=== PATIENT | male | born 1935 | race Two or more races ===

== ENCOUNTER 2019-05-12 13:50 | Day surgery (SDC) | payer OTHER ==
[~2019-05-12] VITALS: Ht 175.3 cm; Wt 99.8 kg
[2019-05-12] VITALS (8 sets, daily range): BP systolic 113–153; BP diastolic 42–79
[2019-05-12] MEDS ORDERED: normal saline 1,000 ML IV SCH (14:15)
[2019-05-12] MEDS ORDERED: diphenhydrAMINE 25mg capsule PO PRN (14:15)
[2019-05-12] MEDS ORDERED: LORazepam 0.5 MG tablet PO PRN (14:15)
[2019-05-12] MEDS ORDERED: OMEP20TA23 PO (15:49)
[2019-05-12] MEDS ORDERED: HYDR25TA4 PO (15:49)
[2019-05-12] MEDS ORDERED: AMLO10TA4 PO (15:49)
[2019-05-12] MEDS ORDERED: METF500T PO (15:49)
[2019-05-12] MEDS ORDERED: ASPI-1265 PO (15:49)
[2019-05-12] MEDS ORDERED: METO-467 PO (15:49)
[2019-05-12] MEDS ORDERED: CYAN500T63 PO (15:49)
[2019-05-12] MEDS ORDERED: GLUC-150 PO (15:49)
[2019-05-12] MEDS ORDERED: ALOG25TA2 PO (15:49)
[2019-05-12] MEDS ORDERED: MIR1T PO (15:49)
[2019-05-12] MEDS ORDERED: NITR0.4T51 SL (15:51)
[2019-05-12] MEDS ORDERED: MULT-1141 PO (15:53)
[2019-05-12] MEDS ORDERED: LOVA20TA2 PO (15:53)
[2019-05-12] MEDS ORDERED: LOSA25TA96 PO (15:54)
[2019-05-12] MEDS ORDERED: midazolam 2 mg/2 ml injection ONE (17:08)
[2019-05-12] MEDS ORDERED: LIDOcaine 1% (10mg/ml)w/preservative injection 20ml MDV ONE (17:08)
[2019-05-12] MEDS ORDERED: fentaNYL/PF 50MCG/1 ML 2ML syringe ONE (17:08)
[2019-05-12] MEDS ORDERED: iohexol 350MG/ML 100ml bottle IV ONE (17:08)
[2019-05-12] MEDS ORDERED: proCHLORperazine 10 MG/2 ml inj IV PRN (18:10)
[2019-05-12] MEDS ORDERED: ondansetron/PF 4mg/2ml inj IV PRN (18:10)
[2019-05-12] MEDS ORDERED: HYDROcodone/acetaminophen 10/325mg tab PO PRN (18:10)
[2019-05-12] MEDS ORDERED: HYDROcodone/acetaminophen 5mg/325mg tablet PO PRN (18:10)
[2019-05-12] MEDS ORDERED: OXAZEpam 15mg capsule PO PRN (18:10)
== END 2019-05-12 20:15 | disposition home or self-care (01) ==
LOC: SSTAY O 13:50
PROVIDERS: ATTEND Internal Medicine Interventional Cardiology
DX: R94.39 Abnormal result of other cardiovascular function study (principal); R07.9 Chest pain, unspecified; I25.10 Atherosclerotic heart disease of native coronary artery without angina pectoris; G47.33 Obstructive sleep apnea (adult) (pediatric); E11.9 Type 2 diabetes mellitus without complications; I10 Essential (primary) hypertension; E78.5 Hyperlipidemia, unspecified; Z79.899 Other long term (current) drug therapy; Z79.82 Long term (current) use of aspirin; Z79.84 Long term (current) use of oral hypoglycemic drugs
CPT/HCPCS: 82948; 93005; 93458; 99152; C1769; J1644; J2001; J2250; J3010; J7030; Q0163; Q9967; A4620; A6258

== ENCOUNTER 2025-02-24 10:34 | Day surgery (SDC) | payer OTHER ==
[2025-02-20 09:08] LABS: MEAN PLATELET VOLUME 8.7 FL (7.4-10.4); RED CELL DISTRIBUTION WIDTH 13.4 % (11.5-14.5)
[2025-02-20 09:17] LABS: APTT 28 SECONDS (22-32); INR 1.1 INR
[2025-02-20 09:21] LABS: CHOL/HDL RATIO 1.9 (0.00-4.99); CREATININE 0.64 MG/DL (0.60-1.10); LDL CHOLESTEROL 50 MG/DL (50-100); TOTAL CARBON DIOXIDE 26.0 MMOL/L (24-32); eGFR > 90 ML/MIN
[2025-02-24] VITALS (8 sets, daily range): BP systolic 115–135; BP diastolic 63–72; PULSE 69–80; RESP 14–16; TEMP 97.8; O2SAT 95–100
[~2025-02-24] VITALS: Ht 175.3 cm; Wt 85.1 kg
[~2025-02-24 10:34] MED LIST: AMLO-912 PO; ASPI-1265 PO; CYAN500T71 PO; EMPA25TA PO; FINA5TAB11 PO; GLUC-150 PO; HYDR25TA4 PO; LOSA-415 PO; LOVA20TA2 PO; METF500T PO; MIR1T PO; NITR0.4T51 SL; OMEP20TA23 PO; ROSU5TAB51 PO
--- NOTE | 2025-02-24 11:11 | ELECTROCARDIOGRAPH REPORT ---
[facility] Test Date: 2025-02-24 Test Time: 11:10:03 Pat Name: TERRELL PENA Department: [facility] Patient ID: [facility]-[id number] Room: Gender: M Patient Care Technician: : 1935 Requested By: EUGENIA YANG Order Number: [id number] Reading MD: Dr. Armando Cardoza Measurements Intervals [place] Rate: 78 P: 25 NH: 286 QRS: -44 QRSD: 122 T: 88 QT: 417 QTc: 476 Interpretive Statements Sinus rhythm Prolonged [place] interval Probable left atrial enlargement Left bundle branch block Electronically Signed On 02-25-2025 8:33:[address] Armando Cardoza Please click the below link to view image of tracing.
[2025-02-24] MEDS ORDERED: TAMS-55 PO (11:46)
[2025-02-24] MEDS ORDERED: CHOL200080 PO (11:46)
[2025-02-24] MEDS ORDERED: normal saline 1000ml 1,000 ML IV SCH (12:10)
[2025-02-24] MEDS ORDERED: verapamil 2.5 mg/ml inj IV ONE (13:41)
[2025-02-24] MEDS ORDERED: LIDOcaine 1% (10mg/ml) 2ml vial ONE (13:41)
[2025-02-24] MEDS ORDERED: midazolam 1 mg/ML 2ml injection ONE (13:42)
[2025-02-24] MEDS ORDERED: fentaNYL/PF 50MCG/1 ML 2ML syringe ONE (13:42)
[2025-02-24] MEDS ORDERED: heparin 1,000unit/ml 10ml vial 10 ML ONE (13:42)
[2025-02-24] MEDS ORDERED: nitroGLYCERIN 500mcg/5mL D5W 5 ML IV ONE (13:44)
[2025-02-24 14:32] LABS: ISTAT HGB ART 13.6 g/dl (14.0-17.9); ISTAT Hct ART 40 %PCV (42-52); ISTAT O2 SATURATION ARTERIAL 90 % (95-98); ISTAT SOURCE ART
[2025-02-24] MEDS ORDERED: HYDROcodone/acetaminophen 5mg/325mg tablet PO PRN (15:00)
[2025-02-24] MEDS ORDERED: HYDROcodone/acetaminophen 10/325mg tab PO PRN (15:00)
--- NOTE | 2025-02-24 16:02 | CARDIAC CATH REPORT ---
Cardiac Cath Report Providers to CC CC: DORIS YANG MD Procedure Comments: 1. Right Heart Catheterization 2. Selective Coronary Angiography 3. Right Brachial vein access 4. Right Radial artery access Brief History/Indications: 89yo man with HTN, HLD, CAD(s/p PCI RCA), severe symptomatic referred for evaluation prior to consideration of AVR. Techniques: After informed consent was obtained, the patient was brought to the cardiac catheterization laboratory and prepped and draped in usual sterile fashion for left heart catheterization and other procedures mentioned above. The right wrist and right AC fossa were anesthetized with 1% Lidocaine. The right AC IV was exchanged over a wire for an 6fr sheath. The right radial artery accessed via the Seldinger technique after which a 6Fr sheath was placed. The [place] was advanced via the right AC sheath to the right atrium, the right ventricle, the pulmonary artery, and wedge position. Through the 6Fr right radial sheath, a TIG was used to engage the left coronary artery and the right coronary artery. At the conclusion of the case the sheath was removed and hemostasis obtained with a VascBand for the radial sheath and manual compression for the brachial sheath. Findings Findings: HEMODYNAMICS: RA: 1 mmHg RV: 23/-, RVEDP 2 mmHg PA: 23/1, mPAP 11 mmHg PCWP: 2 mmHg(V-waves to 5mmHg) TP mmHg DP mmHg Ao: 90/45, MAP 63 mmHg HR: 61 bpm LV: Not obtained due to known severe PA Sat: 70% Ao Sat: 90% CO/CI (Altagracia): 6.46/3.22 PVR: 1 WILSON CORONARY ARTERIES: Rt Dominant LMCA: Luminal Irregularities LAD: Mid 20% stenosis D1: Luminal Irregularities D2: Luminal Irregularities LCx: Luminal Irregularities OM1: Luminal Irregularities OM2: Luminal Irregularities RCA: Prox 30% stneosis, patent distal RCA stent PDA: Luminal Irregularities PL: Luminal Irregularities Results Results: 1. No significant obstructive CAD 2. RRA and RBV access, closed with VascBand and manual compression RECOMMENDATIONS: 1. Agree with referral to [facility] TAVR clinic for evaluation of severe, symptomatic aortic stenosis. EUGENIA YANG MD Feb 24, 2025 16:02
[2025-02-25 06:13] LABS: ISTAT HGB MIX 13.9 g/dl (14.0-17.9); ISTAT Hct MIX 41 %PCV (42-52); ISTAT O2 SATURATION MIX VENOUS 70 % (60-80); ISTAT SOURCE VEN
== END 2025-02-24 17:15 | disposition home or self-care (01) ==
LOC: SSTAY O 10:34
PROVIDERS: ATTEND Student in an Organized Health Care Education/Training Program
DX: I35.0 Nonrheumatic aortic (valve) stenosis (principal); I25.10 Atherosclerotic heart disease of native coronary artery without angina pectoris; I44.7 Left bundle-branch block, unspecified; I11.0 Hypertensive heart disease with heart failure; I50.9 Heart failure, unspecified; E11.9 Type 2 diabetes mellitus without complications; E78.00 Pure hypercholesterolemia, unspecified; G47.33 Obstructive sleep apnea (adult) (pediatric); Z79.82 Long term (current) use of aspirin; Z79.84 Long term (current) use of oral hypoglycemic drugs; Z79.899 Other long term (current) drug therapy; Z95.818 Presence of other cardiac implants and grafts
CPT/HCPCS: 36415; 80048; 80061; 82803; 82948; 83695; 85014; 85025; 85610; 85730; 93005; 93456; 99152; J1644; J2003; J2250; J3010; J3490; J7030; Q0163; Q9967; A6258; A6402; C1751; C1769; C1894

== ENCOUNTER 2025-04-03 12:12 | Outpatient (CLI) | payer OTHER ==
[~2025-04-03 12:12] MED LIST changes: +CHOL200080 PO; +IODIXANOL 320 MG/ML INFUS..BTL 100ML IV ONE; +TAMS-55 PO
[2025-04-03 12:46] LABS: MEAN PLATELET VOLUME 9.1 FL (7.4-10.4); RED CELL DISTRIBUTION WIDTH 13.3 % (11.5-14.5)
[2025-04-03 12:58] LABS: APTT 28 SECONDS (22-32); INR 1.1 INR
[2025-04-03 13:06] LABS: CREATININE 0.67 MG/DL (0.60-1.10); PRO BRAIN NATRIURETIC PEPTIDE 135 PG/ML (0-450); TOTAL CARBON DIOXIDE 27.9 MMOL/L (24-32); eGFR > 90 ML/MIN
--- NOTE | 2025-04-03 14:02 | RADIOLOGY REPORT ---
EXAM: DI CHEST,TWO VIEWS HISTORY: AV STENOSIS,SOB,CAROTID STENOSIS COMPARISON: None TECHNIQUE: Frontal and lateral views of the chest were performed. FINDINGS: No pneumothorax, pulmonary edema, pleural effusions, or consolidative infiltrates. There is mild scar ring in the bilateral lung bases. The heart is not enlarged. The aortic arch is calcific. There are multiple old left rib fractures. There are postoperative changes of ACDF. There is thoracic degenerat jaja disc disease with bridging syndesmophytes throughout. IMPRESSION: 1. No acute intrathoracic process. 2. Atherosclerotic vascular disease. 3. 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 Correlate for possible ankylosing spondylitis .
--- NOTE | 2025-04-04 18:18 | RADIOLOGY REPORT ---
CT CTA TAVR INDICATION: Aortic valvular replacement TECHNIQUE: Gated CT angiography of the heart was performed along with CT angiography of the lower nec k, chest, abdomen, and pelvis. MIP, MPR, and 3-D images were obtained. Measurements were performed on the [employer] workstation. All CT scans at this facility use dose modulation, iterative reconstruction , and/or weight based dosing when appropriate to reduce radiation dose to as low as reasonably achiev able. COMPARISON: None available at the time of dictation. FINDINGS: ANNULAR PLANE DISTANCE: 19.6 x 30.3 mm AREA: 4.82 cm2 AVERAGE DIAMETER: 24.9 mm PERIMETER: 81.8 mm LEFT CORONARY ARTERY HEIGHT ABOVE ANNULAR PLANE: 16.6 mm RIGHT CORONARY ARTERY HEIGHT ABOVE ANNULAR PLANE: 12.8 mm LEFT CORONARY SINUS DIAMETER: 33.6 mm RIGHT CORONARY SINUS DIAMETER: 30.4 mm NONCORONARY CORONARY SINUS DIAMETER: 31.3 mm SINOTUBULAR JUNCTION DIAMETER: 27.6 mm RIGHT COMMON ILIAC ARTERY MINIMAL DIMENSIONS: 9.91 mm RIGHT EXTERNAL ILIAC ARTERY MINIMAL DIMENSIONS: 8.77 mm RIGHT COMMON FEMORAL ARTERY MINIMAL DIMENSIONS: 9.43 mm LEFT COMMON ILIAC ARTERY MINIMAL DIMENSIONS: 10.4 mm LEFT EXTERNAL ILIAC ARTERY MINIMAL DIMENSIONS: 9.05 mm LEFT COMMON FEMORAL ARTERY MINIMAL DIMENSIONS: 9.71 mm [LOWER NECK]: Unremarkable [LYMPH NODES/MEDIASTINUM]: No abnormal lymph nodes by CT size criteria [CARDIOVASCULAR]: Normal cardiac size. No pericardial effusion. No aneurysmal dilatation of the great vessels. Coronary artery calcifications. [LUNG PARENCHYMA/PLEURAL SPACE]: No consolidation, suspicious focal airspace opacity, or suspicious n odules. No pleural effusion or pneumothorax. [CHEST WALL]: Unremarkable. [LIVER]: Normal hepatic size without suspicious focal lesion. [SPLEEN]: Unremarkable. [PANCREAS]: Unremarkable. [GALLBLADDER AND BILIARY TREE]: Surgically absent. No biliary dilatation. [ADRENAL GLANDS]: Unremarkable [KIDNEYS]: No hydronephrosis. No nephroureterolithiasis. [BLADDER]: Circumferential bladder wall thickening, which may be seen in the setting of acute versus chronic cystitis and correlate with urinalysis. [PELVIC ORGANS]: Unremarkable. [BOWEL/MESENTERY]: Stomach is normal. No CT evidence of bowel obstruction. Mosv-[id number] stool bur den [ASCITES]: Absent [LYMPHADENOPATHY]: No pathologically enlarged lymph nodes by CT size criteria [VASCULATURE]: Vascular calcifications. [ABDOMINAL WALL]: Unremarkable. [MUSCULOSKELETAL]: No acute fracture or aggressive focal osseous lesion. Multifocal degenerative munoz ge of the visualized spine. Multiple healed prior rib fractures with callus formation. Prior anterior cervical discectomy and fusion. diffuse idiopathic skeletal hyperostosis. IMPRESSION: 1. Calculations for TAVR evaluation as above.
== END 2025-04-03 23:59 | disposition home or self-care (01) ==
LOC: RAD 12:12
PROVIDERS: ATTEND Internal Medicine Cardiovascular Disease
DX: I35.0 Nonrheumatic aortic (valve) stenosis (principal); R06.02 Shortness of breath; I65.29 Occlusion and stenosis of unspecified carotid artery; M48.12 Ankylosing hyperostosis [Forestier], cervical region; Z95.3 Presence of xenogenic heart valve; Z95.2 Presence of prosthetic heart valve
CPT/HCPCS: 36415; 71046; 71275; 74174; 75572; 80053; 83880; 85025; 85610; 85730; Q9967

== ENCOUNTER 2025-04-23 07:17 | Inpatient (IN) | payer OTHER ==
[2025-04-17 10:48] LABS: LEUKOCYTE ESTERASE ,URINE NEGATIVE (Neg); NITRITES, URINE NEGATIVE (Neg); OCCULT BLOOD,URINE SMALL (Neg)
[2025-04-17 10:51] LABS: MEAN PLATELET VOLUME 9.1 FL (7.4-10.4); PRE OP HEMATOCRIT 48.5 % (42.0-52.0); PRE OP HEMOGLOBIN 16.3 g/dL (14.0-17.9); PRE OP PLATELET COUNT 225 X10'3 (140-440); PRE OP WHITE BLOOD COUNT 7.2 10'3 (4.8-10.8); RED CELL DISTRIBUTION WIDTH 13.8 % (11.5-14.5)
[2025-04-17 10:58] LABS: UA COLLECTION TYPE NON-SPECIFIED
[2025-04-17 11:00] LABS: SQUAMOUS EPITHELIAL CELL,UR FEW /LPF (FEW)
[2025-04-17 11:01] LABS: PRE OP INR 1.1 INR; PRE OP PARTIAL THROMB. TIME 29.0 SECONDS (22-32); PRE OP PROTIME 10.9 SECONDS (9.0-12.0)
[2025-04-17 11:08] LABS: CREATININE 0.83 MG/DL (0.60-1.10); PRE OP ALT 29 U/L (30-65); PRE OP ANION GAP 7 (8-16); PRE OP AST 22 U/L (10-37); PRE OP BILIRUB, TOTAL 1.0 MG/DL (0.0-1.0); PRE OP GLUCOSE 119 MG/DL (70-104); PRE OP POTASSIUM 4.2 MMOL/L (3.4-5.1); PRE OP SODIUM 140 MMOL/L (135-145); PRO BRAIN NATRIURETIC PEPTIDE 112 PG/ML (0-450); TOTAL CARBON DIOXIDE 31.0 MMOL/L (24-32); eGFR 88 ML/MIN
--- NOTE | 2025-04-17 12:01 | ELECTROCARDIOGRAPH REPORT ---
[facility] Test Date: 2025-04-17 Test Time: 10:39:41 Pat Name: TERRELL PENA Department: PRE/OP CARDIOLOGY Room: Gender: M Manager Project: : 1935 Requested By: JHOANA HAIDER Order Number: [id number] Reading MD: Dr. EKTA Garcia Measurements Intervals [place] Rate: 79 P: 33 OK: 245 QRS: -17 QRSD: 122 T: 106 QT: 437 QTc: 502 Interpretive Statements Age not entered, assumed to be 52 years old for purpose of ECG interpretation Sinus rhythm Ventricular bigeminy Prolonged [place] interval Left bundle branch block Electronically Signed On 04-17-2025 16:49:[address] EKTA Garcia Please click the below link to view image of tracing.
[2025-04-23] VITALS (22 sets, daily range): BP systolic 98–155; BP diastolic 49–77; PULSE 58–78; RESP 11–20; TEMP 97.3–97.7; O2SAT 93–100
[~2025-04-23] VITALS: Ht 175.3 cm; Wt 83.7 kg
[2025-04-23] MEDS: ceFAZolin 2gm/dext,iso 50mL 50 ML IV ONE (05:30)
[~2025-04-23 07:17] MED LIST changes: -AMLO-912 PO; +AMLO5TAB PO; -IODIXANOL 320 MG/ML INFUS..BTL 100ML IV ONE; -LOVA20TA2 PO; +nitroPRUSSIDE (NIPRIDE) (200MCG/ML) 100ML Drip IV SCH; +ondansetron/PF 4mg/2ml inj IV PRN; +phenylephrine inj 50 MG in normal saline 250ml IV solN IV SCH
[2025-04-23] MEDS: VANCOMYCIN/H2O 1.5g/300mL PB 300 ML IV ONE (07:54)
[2025-04-23] MEDS: ringers solution, lacted 1,000 ML IV SCH ×2 (07:55→11:55)
[2025-04-23] MEDS ORDERED: protamine sulfate 10mg/ml inj. ONE ×3 (08:41→10:50)
[2025-04-23] MEDS ORDERED: morphine 4 MG/ML inj SYRINge IV PRN ×2 (09:20)
[2025-04-23] MEDS ORDERED: labetalol 20mg/4ml (5mg/ml) syringe IV PRN ×2 (09:20→11:55)
[2025-04-23] MEDS ORDERED: hydrALAZINE 20mg/ml inj. IV PRN ×2 (09:20→11:55)
[2025-04-23] MEDS ORDERED: ondansetron/PF 4mg/2ml inj IV PRN ×2 (09:20→11:55)
[2025-04-23] MEDS ORDERED: fentaNYL/PF 50MCG/1 ML 2ML syringe ONE (10:17)
[2025-04-23] MEDS ORDERED: midazolam 1 mg/ML 2ml injection ONE (10:17)
[2025-04-23] MEDS ORDERED: LIDOcaine 1% 30ml preserv. free vial ONE (10:18)
[2025-04-23] MEDS ORDERED: heparin 1,000 UNITS/NS 500ml 1,500 ML ONE (10:19)
[2025-04-23] MEDS ORDERED: desflurane 240ml liquid inh. IH ONE (10:58)
[2025-04-23] MEDS ORDERED: heparin 1,000unit/ml 10ml vial 10 ML ONE (11:07)
[2025-04-23] MEDS ORDERED: propofol inj 20 ML IV ONE (11:08)
[2025-04-23] MEDS ORDERED: LIDOcaine 2% (20mg/ml) 5ml vial ONE ×2 (11:08)
[2025-04-23] MEDS ORDERED: ePHEDrine 50MG/ML INJ. ONE (11:12)
[2025-04-23] MEDS ORDERED: docusate sod 100mg capsule PO PRN (11:55)
[2025-04-23] MEDS ORDERED: potassium Cl 40MEQ/1/2NS 520ml 520 ML IV PRN (11:55)
[2025-04-23] MEDS ORDERED: dextrose 50%-water 50ml dispensing syringe IV PRN ×4 (11:55→20:05)
[2025-04-23] MEDS ORDERED: ALPRAZolam 0.25mg tablet PO PRN (11:55)
[2025-04-23] MEDS ORDERED: glucagon, human recombinant 1mg kit SUBCUT PRN ×2 (11:55→20:05)
[2025-04-23] MEDS ORDERED: DEXTROSE 15 GM of carb/4 tabs (each vial/BOTTLE has 4 tablets) PO PRN ×4 (11:55→20:05)
[2025-04-23] MEDS ORDERED: HYDROcodone/acetaminophen 5mg/325mg tablet PO PRN (11:55)
[2025-04-23] MEDS ORDERED: potassium CL 10mEq/100ml bag 100 ML IV PRN (11:55)
[2025-04-23] MEDS: normal saline 1000ml 1,000 ML IV SCH (11:55)
[2025-04-23] MEDS ORDERED: potassium Cl 20mEq/100mL bag 100 ML IV PRN (11:55)
[2025-04-23] MEDS ORDERED: pantoprazole 40mg Tablet.DR PO PRN (11:55)
[2025-04-23] MEDS ORDERED: magnesium sulf-water 2g/50mL 50 ML IV PRN (11:55)
[2025-04-23] MEDS ORDERED: potassium Cl 40MEQ/270ML bag 250 ML IV PRN (11:55)
[2025-04-23] MEDS ORDERED: magnesium sulf-water 4G/100mL 100 ML IV PRN (11:55)
--- NOTE | 2025-04-23 11:59 | OPERATIVE REPORT ---
Operative Report Providers to CC CC: DORIS WILEY MD ~ Date of Procedure: Apr 23, 2025 Pre-Operative Diagnosis: Severe Aortic Stenosis Post-Operative Diagnosis SAME as PRE-Op Procedure Performed 1. Ultrasound-guided access, bilateral femoral vessels. 2. Bilateral femoral angiography. 3. Ascending aortography. 4. Temporary transvenous pacer to the RV apex. 5. Placement of a 26 +1 mm Bartlett S3 Resilia valve. Surgeon: Eugenia Wiley MD Donor Services Technician MD Dr. Bebeto Rodriguez MD Anesthesiologist: Camden Zheng Type of Anesthesia: General Findings: Severe Aortic Stenosis Complications None Prosthetics\Implants used: Bartlett 26+1mm S3 Resilia Estimated Blood Loss: Minimal Specimen Removed: None Description of Procedure: The patient was brought to the laborer steel handling in a fasting state. They underwent general anesthesia. Ultrasound was used to guide access to the bilateral femoral vessels, 7-Nigerien sheath, left femoral artery, 6-Nigerien sheath, right femoral artery and left femoral vein. Bilateral femoral angiograms were obtained. Heparin was given to maintain an ACT over 250 seconds. Two crisscross Percloses were placed on the right. We upsized to an 8-Nigerien sheath. Two pigtail catheters placed in the ascending aorta. Ascending aortography done to determine the angle of deployment. Temporary transvenous pacer to the RV apex and confirmed capture. We upsized an 8-Nigerien sheath to a 14-Nigerien Bartlett eSheath on the right. We crossed the aortic valve using a straight stiff exchange length Terumo wire supported by a 6-Nigerien AL1 catheter. LV AO pressures were recorded. A Cook extra support wire was placed in the left ventricle. A 26mm Bartlett S3 Resilia valve was brought to position and under rapid right ventricular pacing was deployed. Post-procedure, there was no AI and no residual . Guidewires and balloons were removed at this time. The temporary pacer was removed. The 14-Nigerien Bartlett eSheath was removed and two crisscross Percloses tied with adequate hemostasis. The arterial sheath on the left was removed and a single Perclose tied. The venous sheath on the left was removed and a single Angioseal used for hemostasis. Protamine was given to reverse the effects of heparin. The patient was stable post-procedure. Good pulses in the legs and no evidence of bleeding, transferred to the PACU in stable condition. HEMODYNAMICS: Pre: LV: 137/10 mmHg LVEDP: 22mmHg Ao: 188/41, MAP 60mmHg Post: LV: 128/11 mmHg LVEDP: 24 mmHg Ao: 127/47, MAP 79mmHg RESULTS: 1. Successful placement of a 26(+1) mm Bartlett S3 Resilia valve, right transfemoral approach, two perclose devices. ASA 81mg QD 2. Diabetes: Diabetic Diet 3. Hypertension: Resume if blood pressure remains stable 4. Acute on chronic diastolic heart failure, LVEDP 22mmHg Patient will be watched in the recovery area until stable, then transferred to telemetry at that time. EUGENIA WILEY MD Apr 23, 2025 11:59
[2025-04-23] MEDS: INSULIN LISPRO 100 UNIT/ML INSULN.PEN MULTI-DOSE SQ SCH ×3 (12:00→21:15)
--- NOTE | 2025-04-23 12:30 | ELECTROCARDIOGRAPH REPORT ---
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 EKTA Garcia Measurements Intervals [place] Rate: 77 P: 2 MI: 280 QRS: -13 QRSD: 130 T: 269 QT: 438 QTc: 496 Interpretive Statements Sinus rhythm Prolonged MI interval Left bundle branch block Electronically Signed On 04-24-2025 16:26:[address] EKTA Garcia Please click the below link to view image of tracing.
[2025-04-23] MEDS: ceFAZolin 1GM/D5W- ADD-VANTAGE 50 ML IV SCH (15:33)
[2025-04-23] MEDS: sod chloride 0.9% 10ml flush syringe IV SCH (15:38)
--- NOTE | 2025-04-23 16:58 | CARDIOLOGY REPORT ---
APPROVED REPORT EXAM: Focused, limited intraprocedural transthoracic 2D, spectral and color flow Doppler echocardiogram during TAVR deployment. Patient Location: CARDIAC AQUATICS MANAGER Blood Pressure: 140 / 71 mmHg Heart Rate: 74 bpm Rhythm: SINUS Indications SEVERE AORTIC STENOSIS 26mm Bartlett Miranda 3 Ultra RESILIA Bioprosthetic TAVR HYPERTENSION HYPERLIPIDEMIA CORONARY DISEASE - STENT X 2 (RCA / DM?) UNK DATE Dough Cutter: Maria A ANGEL MD / Interventionalist: Natty Wiley MD and Yue Savage MD. / Surgeon: Roddy ENGLAND MD. / Device rep: Yadira Mcleod ELS Previous echo: 11/17/24 [facility] EF: 60-65%; WILLIAM 0.52; PKV 3.88; GRAD: 60 / 41; LVOT 2.10; trTR; trMR LEFT VENTRICLE Normal LV size and function. Mild concentric hypertrophy. LVEF is 60-65%. RIGHT VENTRICLE RV is normal size and function. ATRIA Left atrium appears mildly dilated. AORTIC VALVE Trileaflet AV appears heavily calcified with significant stenosis demonstrated by reduced excursion and increased transvalvular and ascending aorta turbulance. WILLIAM: 0.7 cmsq; Pkv: 4.28 m/sec; Gradients: 73 /46 mmHG. No insufficiency. POST DEPLOYMENT (LOOP: 32): 26 mm Bartlett Miranda 3 Ultra Resilia bioprosthetic TAVR appears well seated with normal function. No significant paravalvular leak noted. WILLIAM is measured at 2.9 cmsq. Peak / mean gradients of 13 / 7 mmHG. Peak velocity is measured at 1.92 m/sec. MITRAL VALVE Mild MV annular calcification without stenosis. Trace regurgitation. TRICUSPID VALVE TV appears structurally normal with trace regurgitation. PULMONIC VALVE Pulmonic valve is not visualized. GREAT VESSELS Aortic root is normal in size. Ascending aorta is not visualized. PERICARDIUM Normal pericardium. No effusion. Other Information Study Quality: Adequate, limited parasternal images, poor supine window
[2025-04-23] MEDS: vancomycin/NS 1 GM ADD-VANTAGE 250 ML IV SCH (20:56)
[2025-04-23] MEDS ORDERED: INSULIN LISPRO 100 UNIT/ML INSULN.PEN MULTI-DOSE SQ SCH ×2 (21:00)
[2025-04-24 00:56] VITALS: RESP 17; O2SAT 98
[2025-04-24 06:00] LABS: MEAN PLATELET VOLUME 9.0 FL (7.4-10.4); RED CELL DISTRIBUTION WIDTH 13.7 % (11.5-14.5)
[2025-04-24 06:20] LABS: CREATININE 0.62 MG/DL (0.60-1.10); PRO BRAIN NATRIURETIC PEPTIDE 132 PG/ML (0-450); TOTAL CARBON DIOXIDE 27.8 MMOL/L (24-32); eCRCL 84 ML/MIN; eGFR > 90 ML/MIN
--- NOTE | 2025-04-24 06:38 | ELECTROCARDIOGRAPH REPORT ---
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 EKTA Garcia Measurements Intervals [place] Rate: 74 P: 31 TX: 323 QRS: -33 QRSD: 125 T: 12 QT: 421 QTc: 467 Interpretive Statements Sinus rhythm Prolonged [place] interval Nonspecific intraventricular conduction delay Anteroseptal infarct, old Electronically Signed On 04-24-2025 16:27:[address] EKTA Garcia Please click the below link to view image of tracing.
[2025-04-24] MEDS: cholecalciferol (vitamin D3) 1,000 unit (25mcg) tablet PO SCH (07:50)
[2025-04-24] MEDS: cyanocobalamin 500mcg tablet PO SCH (08:00)
[2025-04-24] MEDS: pantoprazole 40mg Tablet.DR PO SCH (08:00)
[2025-04-24 09:55] VITALS: BP 133/59; PULSE 75; RESP 8; TEMP 97.6; O2SAT 100
[2025-04-24] MEDS: INSULIN LISPRO 100 UNIT/ML INSULN.PEN MULTI-DOSE SQ SCH ×2 (10:09→14:06)
--- NOTE | 2025-04-24 10:13 | RADIOLOGY REPORT ---
CHEST RADIOGRAPH Indication: s/p TAVR Technique: Single frontal view of the chest was obtained Comparison: DI CHEST,TWO VIEWS on DOS: 04/03/25 FINDINGS: Lines and Tubes: None Lungs: No focal consolidation. Pleura: No effusion. No pneumothorax. Cardiomediastinal contours: Unremarkable Bones: No acute osseous abnormality. IMPRESSION: No acute cardiopulmonary disease.
[2025-04-24] MEDS: potassium Cl 20 mEq SR tablet PO PRN (10:14)
[2025-04-24 10:29] VITALS: RESP 18; O2SAT 100
[2025-04-24 10:46] VITALS: BP 126/57; PULSE 78; RESP 12; TEMP 97.5; O2SAT 97
[2025-04-24] MEDS: potassium Cl 20 mEq SR tablet PO STA (15:38)
[2025-04-24 15:57] VITALS: BP 111/55; PULSE 79; RESP 15; TEMP 97.4; O2SAT 96
--- NOTE | 2025-04-24 19:38 | CARDIOLOGY REPORT ---
APPROVED REPORT EXAM: Limited 2D, Doppler, and color-flow Echocardiogram. Patient Location: 302 Blood Pressure: 126/57 mmHg Heart Rate: 76 bpm Rhythm: NSR Indications ONE DAY FOLLOW-UP TAVR 26 mm Bartlett Miranda 3 Ultra RESILIA Bioprosthetic TAVR Laboratory Miller: Maria A Barth MD. Previous echo 04/23/25 [facility] EF 60-65%; WILLIAM 2.9; Peak v 1.92; Grad 13/7 2D Dimensions LVOT Diameter 2.60 (1.8-2.4cm) IVC 22.44 mm Aortic Valve AoV Peak Vinod. 196.0 cm/s AoV VTI 36.5 cm AO Peak GR. 15.4 mmHg AO Mean GR. 8 mmHg LVOT VTI 19.76 cm LVOT Peak Vinod. 101.5 cm/s WILLIAM(VTI)/BSA 2.88 cm2/m2 WILLIAM (VTI) 2.88 cm2 Mitral Valve MV Peak Gr. 3 mmHg MV PHT 60 ms MVA (PHT) 3.67 cm2 MV VMax 89.6 cm/s Tricuspid Valve RAP ESTIMATE 10 mmHg LEFT VENTRICLE LV appears normal in size with mild concentric hypertrophy. Overall systolic function appears normal. LVEF is 65%. RIGHT VENTRICLE RV appears normal in size and contractility. AORTIC VALVE 26 mm Bartlett Miranda 3 Ultra RESILIA Bioprosthetic TAVR appears well seated. WILLIAM of 2.88 cmsq with a peak/mean gradient of 15/8 mmHG and a peak velocity of 1.96 m/s. Trivial paravalvular leak noted at 12 and 7 oclock PSAX TTE. MITRAL VALVE MV is thickened with mild annular thickening and no stenosis. Trace mitral regurgitation. TRICUSPID VALVE The tricuspid valve is normal in structure. Trace tricuspid regurgitation. GREAT VESSELS IVC is dilated and collapses greater than 50% with inspiration. PERICARDIUM There is no pericardial effusion. Conclusion LV appears normal in size with mild concentric hypertrophy. Overall systolic function appears normal. LVEF is 65%. RV appears normal in size and contractility. 26 mm Bartlett Miranda 3 Ultra RESILIA Bioprosthetic TAVR appears well seated. WILLIAM of 2.88 cmsq with a peak/mean gradient of 15/8 mmHG and a peak velocity of 1.96 m/s. Trivial paravalvular leak noted at 12 and 7 oclock PSAX TTE. MV is thickened with mild annular thickening and no stenosis. Trace mitral regurgitation. The tricuspid valve is normal in structure. Trace tricuspid regurgitation. There is no pericardial effusion.
--- NOTE | 2025-04-26 12:10 | DISCHARGE SUMMARY ---
Discharge Summary Providers to CC CC: DORIS YANG MD ~ Discharge Summary Admission Diagnosis: Severe Aortic Stenosis Hospital Course DATE OF ADMISSION: 04/23/2025 DATE OF DISCHARGE: 04/24/2025 Discharge Diagnosis\Comment: Aortic Stenosis status post Transcathere Aortic Valve Replacement Operations\Procedures: 1. Ultrasound-guided access, bilateral femoral vessels. 2. Bilateral femoral angiography. 3. Ascending aortography. 4. Temporary transvenous pacer to the RV apex. 5. Placement of a 26 +1 mm Bartlett S3 Resilia valve. Consultants: None Complications: None Condition on DC: Stable Continued Medications: Amlodipine Besylate (Amlodipine Besylate) 5 Mg Tablet 1 TABLET PO DAILY Aspirin (Aspirin) 81 Mg Tab.chew 1 TAB.CHEW PO DAILY, TAB.CHEW Cholecalciferol (Vitamin D3) (Vitamin D3) 50 Mcg (2000 Unit) Capsule 1 CAP PO DAILY, CAP 0 Refills Cyanocobalamin* (Vitamin B-12*) 500 Mcg Tablet 2 TAB PO DAILY, TAB Finasteride (Finasteride) 5 Mg Tablet 1 TAB PO DAILY, TAB 0 Refills Glucosamine/D3/Boswellia Julia (Osteo Bi-Flex Caplet) 1 Each Tablet 1 EACH PO BID, TAB Hydrochlorothiazide (Hydrochlorothiazide) 25 Mg Tablet 1 TAB PO DAILY Losartan Potassium* (Cozaar*) 25 Mg Tablet 2 TAB PO DAILY Metformin Hcl* (Glucophage*) 500 Mg Tablet 2 TAB PO BIDBD, TAB Nitroglycerin SL* (Nitrostat SL*) 0.4 Mg Tablet 1 TAB SL Q5MIN PRN for Chest pain Q5min PRNx3-call Omeprazole Magnesium (Prilosec Otc) 20 Mg Tablet.dr 1 TAB PO DAILY Pramipexole Di-Hcl (MIRAPEX tablet) 1 Mg Tablet 1 MG PO BID, TAB Rosuvastatin Calcium (Rosuvastatin Calcium) 5 Mg Tablet 1 TAB PO DAILY for high cholesterol, TAB 0 Refills Tamsulosin Hcl* (Flomax*) 0.4 Mg Cap.sr.24h 1 CAP PO QPM, CAP Discharge Summary: 89yo man with HTN, HLD, DM , Severe symptomatic aortic stenosis admitted after elective TAVR. Did well overnight without issues. --Cont ASA 81mg QD --Educated on Endocarditis PPx *Problems/Diagnosis: (1) Aortic stenosis Total Time Spent on D/C: Up to 30 Minutes Counseling Services Smoking & Tobacco Cessation: N/A EUGENIA YANG MD Apr 26, 2025 12:10
--- NOTE | 2025-04-27 16:06 | OPERATIVE REPORT ---
Operative Report Providers to CC CC: EUGENIA YANG MD; JHOANA HAIDER MD ~ Date of Procedure: Apr 23, 2025 Pre-Operative Diagnosis: Severe Aortic Stenosis Post-Operative Diagnosis SAME as PRE-Op Procedure Performed 1. Transcatheter aortic valve replacement with 26 mm Bartlett S3 Resilia valve model [id number], SN [id number] bovine pericardial balloon inflation 26+1 ml 2. Ultrasound-guided micropuncture access to femoral vessels for sheath placement: 6 Macedonian sheath right femoral artery later upsized to 14 Macedonian E sheath, 7 Macedonian sheath left femoral artery, 6 Macedonian sheath left femoral vein 3. Bilateral femoral angiography 4. Temporary transvenous pacemaker to right ventricular apex placement and later removal Surgeon: Bebeto Jaime MD, PhD, FACC Tank Furnace Operator Interventional Cardiologists: MD Misael Martinez MD Anesthesiologist: Camden Zheng Type of Anesthesia: General Findings: Aortic stenosis Complications None Prosthetics\Implants used: 26 mm Bartlett S3 Resilia TAVR valve Estimated Blood Loss: Minimal Specimen Removed: None Description of Procedure: The patient was brought to the factory laborer, placed supine on the imaging table, and underwent general anesthesia. The patient was prepped and draped in sterile fashion. A radial arterial line was placed for continuous blood pressure monitoring. Ultrasound was used to guide access to the bilateral femoral vessels using micro puncture and modified Seldinger technique. A 7 Macedonian sheath was placed in the above femoral artery, and a 6 Macedonian sheath in the above femoral artery and vein. Bilateral femoral angiograms were obtained. Intravenous heparin was administered to maintain an ACT over 250 seconds. Two Perclose sutures were pre-placed in the working femoral artery for later closure following Esheath removal. The above working femoral artery access was upsized from a 6 Macedonian to an 8 Macedonian sheath. An angled pigtail catheter was advanced through the 7 Macedonian arterial sheath and parked in the right sinus of Valsalva to visualize the plane of the aortic annulus. A 2nd pigtail catheter was advanced through the 8 Macedonian arterial sheath into the ascending aorta. Aortography was performed to determine the final angles of deployment compared to those which had been calculated from the TAVR computed tomography images. A temporary balloon tipped transvenous pacemaker was advanced through the venous sheath to the right ventricular apex and capture was confirmed. The 8 Macedonian arterial sheath was upsized to the Bartlett E sheath through which the aortic valve was crossed using a straight stiff exchange length Terumo wire supported by a 6 Macedonian AL1 catheter. Left ventricular and aortic pressures were recorded. And extra support Cook wire with custom hand curling of the J-tip to match the internal dimensions of the apical left ventricle was advanced into the left ventricle. The above-listed Bartlett TAVR valve with distal valve skirt confirmed was crimped onto the delivery device. The delivery device was advanced over the wire in the Esheath to the thoracic aorta where the TAVR balloon was then retracted into position inside the TAVR valve. The device was 50% retroflexed for travel through the aortic arch, and the TAVR valve positioned in the point lay ira aortic valve at the annulus. Right ventricular pacing at 180 beats per minute was initiated, the systolic blood pressure dropped below 50 mmHg, and the valve was deployed after full balloon inflation for 4 seconds taking care to ensure inflation pressure did not exceed 8 mmHg. Rapid balloon deflation was performed, rapid pacing discontinued, and hemodynamics recovered without incident. Transthoracic echocardiography was performed. Post procedure , there was no aortic insufficiency, no residual aortic stenosis, no paravalvular leak, and no pericardial effusion. Catheters, guidewires, and the delivery device were removed at this time. The temporary transvenous pacer was removed. The Bartlett Esheath was removed and the 2 pre-placed Perclose sutures were tied with adequate hemostasis. The 7 Macedonian arterial sheath was removed and a single Perclose suture was deployed and tied. The venous sheath was removed and a single Angio-Seal deployed for hemostasis. Protamine was given to reverse the effects of heparin. Lower extremity pulses were present bilaterally with no evidence bleeding at the vascular access sites. The patient was transferred to the PACU in stable condition Counts repoted as correct: Yes X-Ray findings: No Foreign body BEBETO JAIME MD Apr 27, 2025 16:06
== END 2025-04-24 16:22 | disposition home or self-care (01) | DRG 267 ==
LOC: PAS IN 07:17 → PCU 3S 13:34
PROVIDERS: ADMIT Internal Medicine Cardiovascular Disease; ATTEND Internal Medicine Cardiovascular Disease
PROC: B41D1ZZ Fluoroscopy of Aorta and Bilateral Lower Extremity Arteries using Low Osmolar Contrast (ICD-10-PCS; 2025-04-23)
PROC: B24BZZ4 Ultrasonography of Heart with Aorta, Transesophageal (ICD-10-PCS; 2025-04-23)
PROC: 02RF38Z Replacement of Aortic Valve with Zooplastic Tissue, Percutaneous Approach (ICD-10-PCS; principal; 2025-04-23 10:46)
DX: I35.0 Nonrheumatic aortic (valve) stenosis (principal); Z00.6 Encounter for examination for normal comparison and control in clinical research program; I10 Essential (primary) hypertension; E78.00 Pure hypercholesterolemia, unspecified; Z79.899 Other long term (current) drug therapy; Z79.84 Long term (current) use of oral hypoglycemic drugs
CPT/HCPCS: 33361; 36415; 71045; 76937; 80053; 81001; 82948; 83036; 83735; 83880; 85025; 85347; 85610; 85730; 86885; 86900; 86901; 86920; 87081; 93005; 93308; A4618; A6258; A6449; C1756; C1760; C1769; C1894; G0378; J0690; J1644; J1815; J2003; J2250; J2371; J2704; J2720; J3010; J3373; J3375; J3490; J7030; J7040; J7050; J7120; Q9967